=== PATIENT | female | born 1965 | race African-American/Black ===

== ENCOUNTER → 2024-04-22 13:20 | Outpatient (BNVA) | payer OTHER, SELFPAY | PROVIDERS: Visit Provider Registered Nurse | DX: S46.811A Strain of other muscles, fascia and tendons at shoulder and upper arm level, right arm, initial encounter (principal); X50.1XXA Overexertion from prolonged static or awkward postures, initial encounter | CPT/HCPCS: 99202 ==

== ENCOUNTER → 2024-04-26 14:06 | Outpatient (BNVA) | payer OTHER, SELFPAY | PROVIDERS: Visit Provider Registered Nurse | DX: S46.811A Strain of other muscles, fascia and tendons at shoulder and upper arm level, right arm, initial encounter (principal); X50.1XXA Overexertion from prolonged static or awkward postures, initial encounter | CPT/HCPCS: 99213 ==

== ENCOUNTER → 2024-05-03 14:12 | Outpatient (BNVA) | payer OTHER, SELFPAY | PROVIDERS: Visit Provider Registered Nurse | DX: S46.811A Strain of other muscles, fascia and tendons at shoulder and upper arm level, right arm, initial encounter (principal); X50.1XXA Overexertion from prolonged static or awkward postures, initial encounter | CPT/HCPCS: 99213 ==

== ENCOUNTER → 2024-05-17 14:18 | Outpatient (BNVA) | payer OTHER, SELFPAY | PROVIDERS: Visit Provider Registered Nurse | DX: S46.811D Strain of other muscles, fascia and tendons at shoulder and upper arm level, right arm, subsequent encounter (principal); X50.1XXD Overexertion from prolonged static or awkward postures, subsequent encounter | CPT/HCPCS: 99213 ==

== ENCOUNTER → 2024-05-31 14:13 | Outpatient (BNVA) | payer OTHER, SELFPAY | PROVIDERS: Visit Provider Registered Nurse | DX: S46.811D Strain of other muscles, fascia and tendons at shoulder and upper arm level, right arm, subsequent encounter (principal); X50.1XXD Overexertion from prolonged static or awkward postures, subsequent encounter | CPT/HCPCS: 99213 ==

== ENCOUNTER → 2024-06-24 14:10 | Outpatient (BNVA) | payer OTHER, SELFPAY | PROVIDERS: Visit Provider Registered Nurse | DX: S46.811D Strain of other muscles, fascia and tendons at shoulder and upper arm level, right arm, subsequent encounter (principal); X50.1XXD Overexertion from prolonged static or awkward postures, subsequent encounter | CPT/HCPCS: 99213 ==

== ENCOUNTER → 2024-07-08 13:52 | Outpatient (BNVA) | payer OTHER, SELFPAY | PROVIDERS: Visit Provider Registered Nurse | DX: S46.811D Strain of other muscles, fascia and tendons at shoulder and upper arm level, right arm, subsequent encounter (principal); X50.1XXD Overexertion from prolonged static or awkward postures, subsequent encounter | CPT/HCPCS: 99213 ==

== ENCOUNTER 2024-07-19 10:01 | Outpatient (REF) | payer OTHER, SELFPAY ==
--- NOTE | ~2024-07-19 | XR_ITS ---
EXAMINATION: XR CERVICAL SPINE SERIES XR DORSAL SPINE SERIES CLINICAL INFORMATION: Cervicalgia. Pain in dorsal spine. COMPARISON: None available. TECHNIQUE: 3 views of the dorsal spine. 5 views of the cervical spine including flexion and extension. FINDINGS: Dorsal spine: Vertebral bodies normally aligned with normal height. Disc spaces are normal. Surrounding bones and soft tissues are unremarkable. Cervical spine: Vertebral bodies normally aligned with normal height. There is obbf-xx-yxschdrh multilevel degenerative disc changes extending from C3-C4 through C6-C7 manifested by varying degrees of disc space narrowing and endplate osteophytes. Facets unremarkable. No abnormal translation with flexion and extension. Surrounding bones and soft tissues unremarkable. XR/XR thoracic spine 3V IMPRESSION: 1. Dorsal spine: Normal. 2. Hsmp-kt-symdlcgo multilevel spondylosis of the cervical spine. Electronically signed by: Talon Wilkins MD 08/03/2024 07:23 AM EDT
--- NOTE | ~2024-07-19 | XR_ITS ---
EXAMINATION: XR CERVICAL SPINE SERIES XR DORSAL SPINE SERIES CLINICAL INFORMATION: Cervicalgia. Pain in dorsal spine. COMPARISON: None available. TECHNIQUE: 3 views of the dorsal spine. 5 views of the cervical spine including flexion and extension. FINDINGS: Dorsal spine: Vertebral bodies normally aligned with normal height. Disc spaces are normal. Surrounding bones and soft tissues are unremarkable. Cervical spine: Vertebral bodies normally aligned with normal height. There is swqj-ya-eozzangz multilevel degenerative disc changes extending from C3-C4 through C6-C7 manifested by varying degrees of disc space narrowing and endplate osteophytes. Facets unremarkable. No abnormal translation with flexion and extension. Surrounding bones and soft tissues unremarkable. XR/XR cervical spine w flex/ext IMPRESSION: 1. Dorsal spine: Normal. 2. Sngl-fh-xczrcvzz multilevel spondylosis of the cervical spine. Electronically signed by: Talon Wilkins MD 08/03/2024 07:23 AM EDT
== END 2024-07-19 10:02 | disposition home or self-care (01) ==
LOC: HO.XRAY 10:01
PROVIDERS: Visit Provider Registered Nurse Emergency
DX: M54.6 Pain in thoracic spine (principal); M54.2 Cervicalgia
CPT/HCPCS: 72052; 72072; 99202

== ENCOUNTER 2024-07-19 10:01 | Outpatient (AMB) | payer OTHER, SELFPAY ==
--- NOTE | 2024-07-19 10:10 | MHC.OFFVIS ---
Vital Signs 07/19/24 10:11 Weight 169 lb BP 139/80 Blood Pressure Location Lt brachial Position Sitting Pulse 87 Pulse Source Pulse Oximeter Pulse Oximetry (%) 99 Oxygen Delivery Method Room Air Intake Visit Reasons: Right Shoulder/Arm Trapezius Allergies Sulfa (Sulfonamide Antibiotics) Allergy (Intermediate, Verified 07/19/24 10:12) Hives Medication List - Last Reconciled 07/19/24 by Emmie Prabhakar biotin 2,500 mcg PO DAILY calcium carbonate 500 mg PO DAILY cholecalciferol (vitamin D3) 25 mcg PO DAILY cyclobenzaprine 10 mg PO BEDTIME PRN glucosamine-chondroitin 250-200 mg (Osteo Bi-Flex) 2 tabs PO ONCE mecobalamin (vitamin B12) mcg PO topiramate (Topamax) 25 mg PO BID HPI Comments Details: Shannan is a very pleasant 59-year-old female who presents the office today for evaluation management of her chronic right upper back pain Pain started 04/21/2024 after work injury. 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 She developed pain over the next day to the right upper back radiating down the right arm. Endorses initially some burning, numbness, tingling down the right arm this has improved since the injury Now complains mostly of pain, tenderness to palpation over right thoracic paraspinal muscles Patient just completed physical therapy 2 weeks ago without improvement of her symptoms She has tried massage and cupping without improvement She has been taking ibuprofen and muscle relaxers but pain persists Using lidocaine patches with minimal improvement. Pain today is rated as a 4/10, constant and worse at the end of the day In terms of muscle damage condition is described as stabbing, burning, tingling, exhausting, aching. Pain is negatively impacting patient's sleeping, working, enjoyment of life, general activity, ability to care for herself. Denies current use of anticoagulants Denies implantable devices, pacemaker or defibrillator Denies current use of nicotine, tobacco, alcohol or illicit substances. Review of Systems Const All systems reviewed & are unremarkable except as noted in HPI and below Physical Exam Vital Signs: Last Vital Signs Pulse 87 07/19/24 10:11 BP 139/80 07/19/24 10:11 Pulse Ox 99 07/19/24 10:11 Oxygen Delivery Method Room Air 07/19/24 10:11 General: awake, alert, oriented. Answers questions appropriately. Fully engaged in examination. Skin: warm, dry, intact HEENT: Normocephalic. Hearing intact. Cardiac: External chest normal in appearance. Respiratory: No cough, audible wheezing or stridor. Abdomen: without gross distension. MS: No obvious swelling or deformities. Able to stand on bilateral tiptoes and bilateral heels.? Able to transition from sit to stand unassisted. Ambulates with bilaterally normal heel strike and toe off Tenderness to palpation over midline thoracic vertebrae in right thoracic paraspinal muscles Right upper extremity full range motion Bilateral upper extremity strength 5/5 Full cervical range of motion Valsalva negative Neurological: Oriented to person, place, time and situation. Thought process intact. No gait abnormalities appreciated. Psychiatric: Appropriate mood and affect. Good judgment and insight. Assessment & Plan Assessment & Plan (1) Thoracic back pain: Code(s): M54.6 - Pain in thoracic spine Category: Medical Plan Shannan is a very pleasant 59-year-old female who presented to the office today for evaluation management of her chronic thoracic back pain X-rays ordered for evaluation MRI ordered, patient is suffering with thoracic radiculopathy, failed greater than 6 weeks of conservative therapy. Gabapentin 100 mg p.o. t.i.d., patient advised on cautions for use. TENs unit ordered, patient provided with brochures and instructions on use Continue cyclobenzaprine as prescribed. Patient declines refill today Discuss options for treatment, pending review of MRI will plan for MBB versus epidural steroid injection. All questions and concerns were answered, patient agrees with the plan. Follow up after MRI, sooner if needed Orders: Orders XR cervical spine w flex/ext Today M54.2 - Cervicalgia XR thoracic spine 3V Today M54.6 - Pain in thoracic spine MR thoracic spine wo con Today M54.6 - Pain in thoracic spine Medications: New gabapentin 100 mg PO TID 90 caps 0RF Coding Level of Care Code New Pt Level 4 (49518) Complex EM visit Add On G2211 Diagnoses Thoracic back pain M54.6
[2024-07-19 10:11] VITALS: BP 139/80; PULSE 87; O2SAT 99
== END 2024-07-19 10:50 | disposition home or self-care (01) ==
PROVIDERS: Visit Provider Registered Nurse Emergency
DX: M54.6 Pain in thoracic spine (principal)
CPT/HCPCS: 99204; G2211

== ENCOUNTER → 2024-08-02 14:45 | Outpatient (BNVA) | payer OTHER, SELFPAY | PROVIDERS: Visit Provider Registered Nurse | DX: S46.811D Strain of other muscles, fascia and tendons at shoulder and upper arm level, right arm, subsequent encounter (principal); X50.1XXD Overexertion from prolonged static or awkward postures, subsequent encounter | CPT/HCPCS: 99213 ==

== ENCOUNTER → 2024-09-02 13:53 | Outpatient (BNVA) | payer OTHER, SELFPAY | PROVIDERS: Visit Provider Registered Nurse | DX: S46.811D Strain of other muscles, fascia and tendons at shoulder and upper arm level, right arm, subsequent encounter (principal); X50.1XXD Overexertion from prolonged static or awkward postures, subsequent encounter | CPT/HCPCS: 99213 ==

== ENCOUNTER 2024-09-19 11:11 | Outpatient (AMB) | payer OTHER, SELFPAY ==
--- NOTE | 2024-09-19 12:02 | MHC.OFFVIS ---
Vital Signs 09/19/24 12:03 Height 5 ft 11 in Weight 169 lb BMI 23.6 BP 102/78 Blood Pressure Location Lt brachial Position Sitting Respiration 14 Pulse 108 H Pulse Source Pulse Oximeter Pulse Oximetry (%) 98 Oxygen Delivery Method Room Air Intake Visit Reasons: Right shoulder pain-workman's comp Allergies Sulfa (Sulfonamide Antibiotics) Allergy (Intermediate, Verified 09/19/24 12:04) Hives Medication List - Last Reconciled 09/19/24 by Meghann Cardenas LPN biotin 2,500 mcg PO DAILY calcium carbonate 500 mg PO DAILY cholecalciferol (vitamin D3) 25 mcg PO DAILY cyclobenzaprine 10 mg PO BEDTIME PRN glucosamine-chondroitin 250-200 mg (Osteo Bi-Flex) 2 tabs PO ONCE lidocaine 5% 1 patch topical DAILY mecobalamin (vitamin B12) mcg PO topiramate (Topamax) 25 mg PO BID HPI HPI Right shoulder pain-workman's comp: Details: 59-year-old female who presents today to the office for a right upper back pain. She reports chronic right upper back pain. The pain started on 04/21/2024 after work injury. 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 She attempted to prevent him falling to the floor by pulling back with her arm. She developed pain over the next day to the right upper back radiating down the right arm. She initially endorses some burning, numbness, tingling down the right arm this has improved since the injury after physical therapy. She completed physical therapy in July 2024 without improvement of her upper back symptoms. She has tried massage and cupping without improvement. She has been taking ibuprofen and muscle relaxers with no relief. She has been using lidocaine patches with mild improvement. She has difficulty sleeping, working, enjoyment of life, general activity, ability to care for herself. She currently notes the pain is in her upper back. She had experienced some tingling lately, which was resolved by TENS units. She has continued with lidocaine patches. She is a side sleeper. Recently, her thoracic spine MRI was denied by the insurance. Review of Systems Const All systems reviewed & are unremarkable except as noted in HPI and below Physical Exam Vital Signs: Last Vital Signs Pulse 108 H 09/19/24 12:03 Resp 14 09/19/24 12:03 BP 102/78 11/11/24 12:03 Pulse Ox 98 09/19/24 12:03 Oxygen Delivery Method Room Air 09/19/24 12:03 BMI result Body Mass Index 23.6 General: Appears afebrile. Alert and oriented. Mood and affect appropriate. Follows and participates in conversation appropriately. Respiratory effort is unlabored. Able to transition from sit to stand unassisted. Ambulates with bilaterally normal heel strike and toe off. Tenderness to palpation in the right parascapular region and the right paraspinal thoracic region. Results Reviewed Results Reviewed: 07/19/24: XR CERVICAL SPINE SERIES/XR DORSAL SPINE SERIES FINDINGS: Dorsal spine: Vertebral bodies normally aligned with normal height. Disc spaces are normal. Surrounding bones and soft tissues are unremarkable. Cervical spine: Vertebral bodies normally aligned with normal height. There is qnpt-ox-smqnkxch multilevel degenerative disc changes extending from C3-C4 through C6-C7 manifested by varying degrees of disc space narrowing and endplate osteophytes. Facets unremarkable. No abnormal translation with flexion and extension. Surrounding bones and soft tissues unremarkable. IMPRESSION: 1. Dorsal spine: Normal. 2. Jiwu-kd-pmozlbfg multilevel spondylosis of the cervical spine. Assessment & Plan Assessment & Plan (1) Cervical spondylosis: Code(s): M47.812 - Spondylosis without myelopathy or radiculopathy, cervical region Category: Medical (2) Cervical radiculopathy: Code(s): M54.12 - Radiculopathy, cervical region Category: Medical Plan I recommended a course of physical therapy for her cervical intervertebral disc degeneration and spondylosis that may be a source of her referred for back pain. A referral was provided for neck physical therapy. The patient will receive a call to schedule an appointment. I also recommended a trial of acupuncture or dry needling along with physical therapy. If she does not respond to physical therapy, we will consider an MRI of the neck for consideration of an epidural steroid injection. She will follow-up in [address] Enrique by Eugenie Peter, medical device sales consultant, on 09/19/2024.? I, Dr. Enrique, have personally reviewed and agree with the information entered by the scribe. Orders: Orders PT Evaluation and Treatment 09/19/24 M54.12 - Radiculopathy, cervical region, M47.812 - Spondylosis without myelopathy or radiculopathy, cervical region Coding Level of Care Code Est Pt Level 4 (32878) Diagnoses Cervical spondylosis M47.812 Cervical radiculopathy M54.12
[2024-09-19 12:03] VITALS: BP 102/78; PULSE 108; RESP 14; O2SAT 98; BMI 23.6
== END 2024-09-19 12:43 | disposition home or self-care (01) ==
PROVIDERS: Visit Provider Internal Medicine
DX: M47.812 Spondylosis without myelopathy or radiculopathy, cervical region (principal); M54.12 Radiculopathy, cervical region
CPT/HCPCS: 99214

== ENCOUNTER → 2024-09-19 11:11 | Outpatient (BNVA) | payer OTHER, SELFPAY | PROVIDERS: Visit Provider Internal Medicine | DX: M47.22 Other spondylosis with radiculopathy, cervical region (principal) | CPT/HCPCS: 99212 ==

== ENCOUNTER → 2024-10-14 13:45 | Outpatient (BNVA) | payer OTHER, SELFPAY | PROVIDERS: Visit Provider Registered Nurse | DX: S46.911D Strain of unspecified muscle, fascia and tendon at shoulder and upper arm level, right arm, subsequent encounter (principal); X50.1XXD Overexertion from prolonged static or awkward postures, subsequent encounter; M54.2 Cervicalgia; M47.812 Spondylosis without myelopathy or radiculopathy, cervical region | CPT/HCPCS: 99213 ==

== ENCOUNTER → 2024-11-22 15:19 | Outpatient (BNVA) | payer OTHER, SELFPAY | PROVIDERS: Visit Provider Registered Nurse | DX: S46.811D Strain of other muscles, fascia and tendons at shoulder and upper arm level, right arm, subsequent encounter (principal); X50.1XXD Overexertion from prolonged static or awkward postures, subsequent encounter; M54.2 Cervicalgia | CPT/HCPCS: 99213 ==

== ENCOUNTER 2024-12-21 09:57 | Outpatient (AMB) | payer OTHER, SELFPAY ==
[2024-12-21 10:01] VITALS: BP 124/84; PULSE 87; RESP 16; BMI 24.3
--- NOTE | 2024-12-21 10:01 | A.OFFVIS_ITS ---
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 Allergies Sulfa (Sulfonamide Antibiotics) Allergy (Intermediate, Verified 12/21/24 10:02) Hives Medication List - Last Reconciled 12/21/24 by Meghann Cardenas LPN biotin 2,500 mcg PO DAILY calcium carbonate 500 mg PO DAILY cholecalciferol (vitamin D3) 25 mcg PO DAILY cyclobenzaprine 10 mg PO BEDTIME PRN glucosamine-chondroitin 250-200 mg (Osteo Bi-Flex) 2 tabs PO ONCE lidocaine 5% 1 patch topical DAILY mecobalamin (vitamin B12) mcg PO topiramate (Topamax) 25 mg PO BID HPI HPI follow up: Details: History of Present Illness The patient is a 59-year-old female presenting with follow-up for chronic neck and thoracic back pain. She reports chronic cervical radiculopathy with pain radiating into the shoulder, characterized by burning sensations that have slightly improved with physical therapy and exercise regimens. Despite trying dry needling, results were unsatisfactory. The patient is managing ongoing discomfort with a combination of lidocaine patches and TENS therapy as needed. Additionally, she experiences persistent thoracic back pain centered around the shoulder blade, classified as thoracic facet syndrome due to underlying thoracic spondylosis. While physical therapy has been ineffective in resolving these issues over three months, home remedies like massage and tennis ball rolling have been attempted. The recent incorporation of an ergonomic groove pillow has alleviated neck stiffness. To manage work-related aggravations, the patient remains on light duty and may seek a functional capacity evaluation for work accommodations. Pain Description - Onset and Timing: Chronic cervical pain with radiation towards the shoulder; thoracic pain persistent for several months. - Quality and Character: Burning sensation in the neck; local tenderness and intermittent pain around the shoulder blade. - Primary Location: Neck with radiation to the shoulder; thoracic region near the shoulder blade. - Exacerbating Factors: Certain work activities, inadequate ergonomic support. - Relieving Factors: Physical therapy, groove pillow use, lidocaine patch, TENS machine. - Functional Impact: Limitations in work duties; activities requiring shoulder or neck mobility are affected. Physical Exam - TTP along medial scapular edge on the right Results Pain Management - Affect: Pain impacting work duties and daily activities. - Analgesia: Lidocaine patches and TENS machine with intermittent use and need for ongoing management techniques. - Adverse Effects: None reported from pain therapies. - Activities of Daily Living: Use of light duty at work; use of ergonomic aids for comfort. - Aberrant Drug Related Behaviors: None reported. Physical Exam Vital Signs: Last Vital Signs Pulse 87 12/21/24 10:01 Resp 16 12/21/24 10:01 BP 124/84 12/21/24 10:01 BMI result Body Mass Index 24.3 Assessment & Plan Assessment & Plan (1) Thoracic back pain: Code(s): M54.6 - Pain in thoracic spine Category: Medical (2) Cervical radiculopathy: Code(s): M54.12 - Radiculopathy, cervical region Category: Medical (3) Cervical spondylosis: Code(s): M47.812 - Spondylosis without myelopathy or radiculopathy, cervical region Category: Medical Plan Plan To manage the patient's chronic neck and thoracic back pain, an ultrasound- guided erector spinae block is recommended to alleviate the persistent thoracic pain that has been unresponsive to physical therapy. Recommend continuing PT program, which has otherwise been helpful. Deep tissue massage will continue alongside home exercises like tennis ball rolling. Consideration of a functional capacity evaluation to assess work-related capabilities is advised. She is advised to avoid activities that exacerbate her condition and to maintain ergonomic support during rest. Patient was informed and verbally consented to the use of an ambient scribe for clinic note documentation during this visit. Discussion Notes I discussed the chronic nature of the patient's neck and thoracic back pain, attributing it to cervical radiculopathy and thoracic facet syndrome secondary to spondylosis. We explored various management options including physical therapy, medication patches, and ergonomic aids. A therapeutic ultrasound-guided erector spinae block was recommended, and I explained the procedure's potential benefits and risks, obtaining verbal consent. I advised continuing physical therapy efforts at home, including massage and roll exercises, and maintaining light duty at work. A potential functional capacity evaluation was suggested to understand and possibly adjust work limitations. Coordination with workers? compensation for procedural authorization was acknowledged. Patient Instructions - Continue using the ergonomic groove pillow nightly to reduce neck stiffness. - Engage in home exercises such as tennis ball rolling for pain management. - Continue using the lidocaine patch and TENS machine as needed for pain relief. - Maintain light duty at work and avoid activities that exacerbate pain. - Await guidance on the ultrasound-guided block procedure for upper back pain. - Follow up with a functional capacity evaluation if required for work duties. Orders: Orders PT Evaluation and Treatment Today M47.812 - Spondylosis without myelopathy or radiculopathy, cervical region, M54.12 - Radiculopathy, cervical region, M54.6 - Pain in thoracic spine Coding Level of Care Code Est Pt Level 4 (97585) Diagnoses Thoracic back pain M54.6 Cervical radiculopathy M54.12 Cervical spondylosis M47.812
--- OUTSIDE RECORDS SUMMARY | 2024-12-21 11:41 | XMS_ITS | Continuity of Care Document ---
Author Organization [facility] [address] [place] [address] Phone [phone] Care Team Providers Care Publications Production Supervisor Name Role Phone Ruthy Rowley M.D. Care Team Informati on Manager Poker [phone] Problems Active Problems Provider Date Gastritis Ruthy Rowley M.D. Ons et: 09/26/2022 Tinnitus Ruthy Rowley M.D. Ons et: 09/26/2022 Genital warts Ruthy Rowley M.D. Ons et: 09/26/2022 Dyslipidemia Ruthy Rowley M.D. Ons et: 09/26/2022 Dry eyes Ruthy Rowley M.D. Ons et: 09/26/2022 Migraine Ruthy Rowley M.D. Ons et: 02/01/2024 Irritable bowel syndrome mark racterized by constipation Ruthy Rowley M.D. Onset: 02/01/2024 Uterine leiomyoma Ruthy Rowley M.D. O nset: 02/01/2024 Mantoux: positive Ruthy Rowley M.D. O nset: 02/01/2024 Social History Type Date Description Comments Sex Unknown Lives With Alone Occupation home health care Work Status Full-Time Employment ETOH Use Denies alcohol use Tobacco Use Start: Unknown End: Unknown Patient is a former smoker Quit at least 30 years Allergies and adverse reactions Active Allergies Criticality Reaction Severity Comments Date Sulfamethoxazole Unable to assess criticality 09/26/2022 Medications Active Medications SIG Qnty Indications Ordering Provider Date [id number] Tablets Take 1 Tab By Mouth as Needed For Headache.May Take Extra Tab 2 HRS Later If Needed.Max 2 Tabs/24HRS 6tabs Ruthy Rowley M.D. 10/16/2022 [id number] Tablets take 2 tablets by mouth twice a day 360tabs Ruthy Rowley M.D. 07/07/2022 Valacyclovir UAR196mi Tablets Take 1 Tablet By Mouth Every Day Joey Lackey MD Vitamin A113mig (400 Unit) Capsules 1 by mouth every day Ruthy Rowley M.D. Calcium 600 + [id number] Tablets 1 by mouth every day Ruthy Rowley M.D. [id number] Chewtabs 1 by mouth every day Ruthy Rowley M.D. Osteo Bi-Flex Advanced Triple StrengthTablets 1 by mouth twice a day Ruthy Rowley M.D. Vitamin C Immune [id number] Chewtabs 1 by mouth every day Ruthy Rowley M.D. Vital Signs Date Vital Result Comment 02/01/2024 1:59pm BP Systolic 90 mmHg BP Diastolic 64 mmHg Heart Rate 73 /min Height 71 inches 5'11 Weight 166.50 lb BMI (Body Mass Index) 23.2 kg/m2 Results Test Acquired Date Facility Test Result H/L Range N ote Comp. Metabolic Panel (14) 02/01/2024 [facility] Glucose 95 mg/dL 70-99 BUN 15 mg/dL 6-24 Creatinine 0.83 mg/dL 0.57-1.00 eGFR 81 mL/min/1.73 >59 BUN/Creatinine Ratio 18 9-23 Sodium 144 mmol/L 134-144 Potassium 4.1 mmol/L 3.5-5.2 Chloride 109 mmol/L High 96-106 Carbon Dioxide, Total 21 mmol/L 20-29 Calcium 10.3 mg/dL High 8.7-10.2 Protein, Total 6.6 g/dL 6.0-8.5 Albumin 4.6 g/dL 3.8-4.9 Globulin, Total 2.0 g/dL 1.5-4.5 A/G Ratio 2.3 High 1.2-2.2 Bilirubin, Total 0.4 mg/dL 0.0-1 .2 Alkaline Phosphatase 77 IU/L 44-121 Ast (Sgot) 19 IU/L 0-40 Alt (SGPT) 14 IU/L 0-32 Lipid Panel 02/01/2024 [facility] Cholesterol, Total 200 mg/dL High 100-199 Triglycerides 61 mg/dL 0-149 HDL Cholesterol 59 mg/dL >39 VLDL Cholestero l Deejay 11 mg/dL 5-40 LDL Chol Calc (Nih) 130 mg/dL High 0-99 Comment: TNP Hemoglobin A1c 02/01/2024 [facility] Hemoglobin A1c 5.8 % High 4.8-5.6 1 CBC With Differential/Pl atelet 02/01/2024 [facility] WBC 7.2 x10E3/uL 3.4-10.8 RBC 4.76 x10E6/uL 3.77-5.28 Hemoglobin 14.1 g/dL 11.1-15.9 Hematocrit 41.9 % 34.0-46.6 MCV 88 fL 79-97 MCH 29.6 pg 26.6-33.0 MCHC 33.7 g/dL 31.5-35.7 RDW 12.9 % 11.7-15.4 Platelets 194 x10E3/uL 150-450 Neutrophils 69 % Not Estab. Lymphs 24 % Not Estab. Monocytes 6 % Not Estab. Eos 1 % Not Estab. Basos 0 % Not Estab. Immature Cells TNP Neutrophils (Absolute) 5.0 x10E3/uL 1.4-7.0 Lymphs (Absolute) 1.7 x10E3/uL 0.7-3.1 Monocytes(Absol thais ) 0.4 x10E3/uL 0.1-0.9 Eos (Absolute) 0.1 x10E3/uL 0.0-0.4 Baso (Absolute) 0.0 x10E3/uL 0.0-0.2 Immature Granulocytes 0 % Not Estab. Immature Grans (Abs) 0.0 x10E3/uL 0.0-0.1 NRBC TNP Hematology Comments: TNP 1 Prediabetes: 5.7 - 6 .4 Diabetes: >6.4 Glycemic control for adults with diabetes: <7.0 Procedures Date Code Description Status 02/01/2024 14524 Collection Of Venous Blood B y Venipuncture Completed 09/26/2022 NSHOWOFF No Show Office Visit Complet ed Medical Devices Description No Information Available Encounters Type Date Location Provider Dx Diagnosis Office Visit 02/01/2024 1:30p Main Office Ruthy Rowley M.D. Z00.00 Encntr for general adult medical exam w/o abnormal findings G43.009 Migraine w/o aura, n ot intractable, w/o status migrainosus R73.03 Prediabetes H93.11 Tinnitus, right ear H91.91 Unspecified hearing loss, right ear Assessments Date Code Description Provider 02/01/2024 Z00.00 [facility] Ruthy Rowley M.D. 02/01/2024 G43.009 Migraine without aura, not intractable, without status migrainosus Ruthy Rowley M.D. 02/01/2024 R73.03 Prediabetes Ruthy Goff M.D. 02/01/2024 H93.11 Tinnitus, right ear Ruthy Rowley M.D. 02/01/2024 H91.91 Unspecified hearing loss, ri ght ear Ruthy Rowley M.D. Plan of Treatment Future Appointment(s):* 02/03/2025 10:30 am - Ruthy Rowley M.D. at Main Office 02/01/2024 - Ruthy Rowley M.D.* Z00.00 Encounter for general adult medical examination without abnormal findings * G43.009 Migraine without aura, not intractable, without status migrainosus * R73.03 Prediabetes * H93.11 Tinnitus, right ear * H91.91 Unspecified hearing loss, right ear Functional Status Description No Information Available Mental Status Description No Information Available Referrals Refer to Reason for Referral Status Appt [facility] Hearing loss Patient Declin ed 08/26/2024 Sara Alvarez [address] [place] [address] [phone]
== END 2024-12-21 10:22 | disposition home or self-care (01) ==
PROVIDERS: Visit Provider Internal Medicine
DX: M54.6 Pain in thoracic spine (principal); M54.12 Radiculopathy, cervical region; M47.812 Spondylosis without myelopathy or radiculopathy, cervical region
CPT/HCPCS: 99214

== ENCOUNTER → 2024-12-21 09:57 | Outpatient (BNVA) | payer OTHER, SELFPAY | PROVIDERS: Visit Provider Internal Medicine | DX: M54.6 Pain in thoracic spine (principal); M47.22 Other spondylosis with radiculopathy, cervical region | CPT/HCPCS: 99212 ==

== ENCOUNTER → 2024-12-27 14:02 | Outpatient (BNVA) | payer OTHER, SELFPAY | PROVIDERS: Visit Provider Registered Nurse | DX: M25.511 Pain in right shoulder (principal); M54.2 Cervicalgia | CPT/HCPCS: 99213 ==

== ENCOUNTER → 2025-02-07 14:01 | Outpatient (BNVA) | payer OTHER, SELFPAY | PROVIDERS: Visit Provider Registered Nurse | DX: S46.811D Strain of other muscles, fascia and tendons at shoulder and upper arm level, right arm, subsequent encounter (principal); X50.1XXD Overexertion from prolonged static or awkward postures, subsequent encounter; M54.2 Cervicalgia; M54.6 Pain in thoracic spine | CPT/HCPCS: 99213 ==

== ENCOUNTER 2025-02-17 10:09 | Outpatient (AMB) | payer OTHER, SELFPAY ==
--- NOTE | 2025-02-17 10:11 | A.OFFVIS_ITS ---
Vital Signs 02/17/25 10:12 Height 5 ft 11 in Weight 174 lb BMI 24.3 BP 137/71 Blood Pressure Location Lt brachial Position Sitting Respiration 16 Pulse 96 Pulse Source Pulse Oximeter Pulse Oximetry (%) 100 Oxygen Delivery Method Room Air Intake Visit Reasons: Trigger point inj Gum Dipper Required: No Universal Winding Machine Operator: Universal Winding Machine Operator Present Accompanied by: Akash Dillon Allergies Sulfa (Sulfonamide Antibiotics) Allergy (Intermediate, Verified 02/17/25 10:14) Hives Medication List - Last Reconciled 02/17/25 by Meghann Cardenas LPN biotin 2,500 mcg PO DAILY calcium carbonate 500 mg PO DAILY cholecalciferol (vitamin D3) 25 mcg PO DAILY cyclobenzaprine 10 mg PO BEDTIME PRN glucosamine-chondroitin 250-200 mg (Osteo Bi-Flex) 2 tabs PO ONCE lidocaine 5% 1 patch topical DAILY mecobalamin (vitamin B12) mcg PO topiramate (Topamax) 25 mg PO BID HPI HPI Trigger point inj: Details: History of Present Illness The patient is a 59-year-old female presenting with chronic neck pain and shoulder pain. Her neck pain has worsened since she stopped physical therapy. The pain is sharp, stabbing, and intermittent, waking her at night. She has been managing some symptoms at home using a TENS machine but cannot replicate the benefits of deep tissue massages provided in physical therapy. 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 The current pain pattern extends from the thoracic region to the shoulder, indicating a more comprehensive involvement than initially recognized. Workers' compensation initially covered the shoulder discomfort but now denies further claims due to a narrow definition of the affected area. Her concerns led her to inquire about trigger point injections for temporary pain relief. Pain Description - Onset and Timing: Persistent since the work-related incident. - Quality and Character: Sharp and stabbing in nature. - Primary Location: Neck, with radiation to shoulder areas. - Areas of radiation: Radiating from the neck through to the shoulder. - Exacerbating Factors: Stopped physical therapy, certain activities, wrong sleeping position. - Relieving Factors: TENS machine use, deep tissue massages during past physical therapy sessions. - Interference with Activities: Disrupts sleep, generalized discomfort during da tiffanie activities. Physical Exam - Musculoskeletal- Tenderness and muscular tightness in the cervical and shoulder regions. . Pain Management - Affect: Pain disrupts sleep and daily activities significantly. - Analgesia: Current use of TENS machine, interest in trigger point injections. - Adverse Effects: No reported adverse effects from current management. - Activities of Daily Living: Pain impacts sleep and some daily functions, seeking relief to improve quality of life. - Aberrant Drug Related Behaviors: None reported or noted. Procedure - Patient and informed consent: Consent obtained for procedure. - Procedure: Paraspinal thoracic rhomboid and trapezius trigger point injections were performed using a 25-gauge needle to inject 0.25% ropivacaine in the marked areas. 1-2 mL was injected at each trigger point; total 10 mL. The patient tolerated the procedure well, and there was no blood loss noted. Physical Exam Vital Signs: Last Vital Signs Pulse 96 02/17/25 10:12 Resp 16 02/17/25 10:12 BP 137/71 02/17/25 10:12 Pulse Ox 100 02/17/25 10:12 Oxygen Delivery Method Room Air 02/17/25 10:12 BMI result Body Mass Index 24.3 Assessment & Plan Assessment & Plan (1) Strain of right shoulder: Code(s): S46.911A - Strain of unspecified muscle, fascia and tendon at shoulder and upper arm level, right arm, initial encounter Category: Medical (2) Cervical spondylosis: Code(s): M47.812 - Spondylosis without myelopathy or radiculopathy, cervical region Category: Medical (3) Cervical radiculopathy: Code(s): M54.12 - Radiculopathy, cervical region Category: Medical (4) Thoracic back pain: Code(s): M54.6 - Pain in thoracic spine Category: Medical Plan Plan The patient will continue with home exercise, stretching, and strengthening exercises for management of chronic neck pain alongside the recent administration of trigger point injections for temporary symptomatic relief. Examination of additional massage therapy options is advised. The tracking of insurance coverage for further therapy, potentially needing to shift to alternative providers, is recommended. Continual evaluation and potential follow-up trigger point injections may be required, based on the relief achieved in the interim. The patient will monitor her pain levels and report back on any changes or complications. Patient was informed and verbally consented to the use of an ambient scribe for clinic note documentation during this visit. Discussion Notes During our discussion, I informed the patient about the chronic nature of her neck pain, which may require ongoing management through a combination of exercises, physical therapy, and periodic injections. The benefits of trigger point injections for temporary relief were explained, as well as the understanding that these are not definitive solutions to the underlying issue. We reviewed the workers' compensation situation and the limitations imposed, noting the potential necessity to explore insurance options to ensure ample continued treatment. We also discussed follow-up considerations and the importance of ongoing physical and self-managed therapy. Patient Instructions - Continue using TENS machine and home exercises including stretching and strengthening your neck. - Monitor how the trigger point injection impacts your pain levels over the next few weeks. - Explore other facilities offering deep tissue massages if this has been beneficial. - Contact your insurance provider to inquire about additional physical therapy sessions or massage coverage. - Return for further evaluation if pain worsens or for potential repeat injections. - Report any unusual symptoms or lack of relief from the current treatment plan. Coding Level of Care Code Est Pt Level 4 (45459) Diagnoses Strain of right shoulder S46.911A Cervical spondylosis M47.812 Cervical radiculopathy M54.12 Thoracic back pain M54.6
[2025-02-17 10:12] VITALS: BP 137/71; PULSE 96; RESP 16; O2SAT 100; BMI 24.3
--- OUTSIDE RECORDS SUMMARY | 2025-02-17 10:54 | XMS_ITS | Data Portability ---
Author Organization [place] - [facility], Allergy Address [address] [place] [id number] Care Team Providers Care Java Security Architect Name Role Phone HUTSONTASHA CARCAMO Primary Care Provider Assessment Encounter Date Assessment Date Assessment LastModified by Organization Details LastModified Time 08/26/2024 08/26/2024 Patient presents with non-pulsatile tinnitus. Physical exam unrevealing. Audiometric testing demonstrates mild high frequency loss on the right and normal hearing on the left. Amplification not indicated. We reviewed that unfortunately there is no known medical nor surgical cure. I have recommended the use of hearing protection as needed. They should also use masking techniques with background noises that modulate to decrease perception of non-pulsatile tinnitus. Other therapies to improve tolerance of tinnitus were reviewed, to include biofeedback, sound retraining, and cognitive behavioral therapy. We discussed that high stress, low sleep and high caffeine intake can also be contributing factors. A brochure was provided to patient to read at home. [email or web address] Not available 08/26/2024 11:21:21 Plan of Treatment Reminders Order Date Submit Date Provider Last Modified By Organization Details Last Modified Time Details Appointments None record ed. Lab None record ed. Referral None record ed. Procedures None record ed. Surgeries None record ed. Imaging None record ed. Medication Orders None record ed. Patient TargetsNo targets recorded. Patient InstructionsNo instructions recorded. Reason for Referral None Reported. Results Created Date Observation Date Name Description Value Unit Range Abnormal Flag Note LastModifiedBy Organization Detail LastModifiedTime 08/30/20 24 audio gram No observ ation record ed. BARCODE Not Available 2023 14:03:05 Result Notes None recorded. Problems Name Problem SNOMED Code Status Onset Date Resolution Date Notes Provider Name and Address Organization Details Recorded Time Temporoma ndibular joint disorder 70522513 Active 2013 Temporoma ndibular joint disorder; CMS Risk: low risk CMS Treatment : new problem (to examiner) : no additiona l workup planned [place]: Date Diagnosed : 4 4:39 PM (524.60) Not Available [facility] 4 02:24:20 Sensorine ural hearing loss of bilateral ears 980699562 Active 2013 Sensorine ural HL, bilateral Not Available [facility] 4 00:55:13 Unilatera l sensorine ural hearing loss with unrestric shiloh hearing on the contralat eral side Active 2013 Sensorine ural hearing loss unilatera lly; CMS Risk: low risk CMS Treatment : new problem (to examiner) : no additiona l workup planned [place]: Date Diagnosed : 4 3:27 PM (389.15) Not Available [facility] 4 02:24:03 Sensorine ural hearing loss in right ear 68636696072 100 Active 2023 CLARKE ANTHONY [address], [address] , [facility] 4 10:41:56 Problem Notes None recorded. Procedures Surgical History Date Name Laterality Status Provider Name and Address Organization Details Recorded Time 08/26/2024 Comp Audio with Tymps (45571 & 02600) completed CLARKE ANTHONY [address] [address], [place], [address], [facility] 08/26/2024 10:41:22 Imaging Results Imaging Date Name Status LastModified by Organiz ation Details LastModified Time 08/30/2024 audiogram completed BAR[facility] Information no t available 08/30/2024 14:03:05 Procedure Notes None recorded. Medical Equipment None Reported. Allergies Allergen ID Allergen Name Allergen Category Reaction Reaction Severity Criticality Documentation Date Start Date Code Code System Note Provider Name and Address Organization Details Recorded Time 45569 Substance with sulfonami de structure and antibacte rial mechanism of action (substanc e) medicatio n other Not available Not available 03/22/2024 54811 8003 SNOMED React ion: unkno wn, unspe cifie d;; Not Available [facility] 4 00:52:51 Medications Name Sig Start Date Stop Date Status Note LastModified by Organization Details LastModified Time cyclobenza darlene 10 mg tablet TAKE 1 TABLET BY MOUTH AT BEDTIME NEEDED FOR MUSCLE SPASMS active Not Available Not Available No t Available topiramate 25 mg tablet TAKE 2 TABLETS BY MOUTH TWICE A DAY active Not Available Not Available No t Available valacyclov ir 500 mg tablet TAKE 1 TABLET BY MOUTH EVERY DAY active Not Available Not Available No t Available lidocaine 5 % topical patch APPLY 1 PATCH TOPICALLY DAILY LEAVE ON MOST PAINFUL AREA FOR UP TO 12 HRS active Not Available Not Available No t Available Valtrex 1 gram tablet by mouth 2013 active Medicatio n ID: [id number] Bra nd Name: Valtrex S ubs Allowed: subs OK Medica tionGener icName: Valtrex Not Available Not Available Not Available gabapentin 100 mg capsule TAKE 1 CAPSULE BY MOUTH 3 TIMES A DAY active Not Available Not Available No t Available Vitals Date Recorded Body height Body mass index (BMI) Body weight Provider Name and Address Organization Details Last Updated DateTime 08/26/2024 180.34 cm 23.6 kg/m2 45427.11 g Katelin Keys [place] - [facility] 08/26/2024 09:59:13 Social History None recorded. Functional Status None recorded. Mental Status None recorded. Family History Nothing Reported. Medical History No medical history recorded. Gynecological HistoryNo gynecological history recorded. Obstetrics History GPAL:G 0 P 0 0 0 0 Past Encounters Encounter ID Performer Location Encounter Start Date Encounter Closed Date Diagnosis/Indication Diagnosis SNOMED-CT Code Diagnosis ICD10 Code Diagnosis Note [id number] RENEE SMITH PA-C [facility] [address] [address] 08/26/2024 09:29:53 08/26/2024 11:20:24 Sensorineural hearing loss in right ear [id number] 9100 H90.41 Audiologic al evaluation results: Right ear: {{Normal* Normal through 2 kHz Mild M oderate Mo derately-s evere Vanessa re Profoun d}} {{hearing sloping to a mild* slop ing to a moderate s loping to moderately severe slo ping to severe slo ping to profound f lat high frequency low frequency mid frequency cookie bite daniel curve}} {{with sen sorineural hearing loss with* cond uctive hearing loss with mixed hearing loss with}} {{excellen t* good fa ir poor no measurable }} word recognitio n. Left ear: {{Normal N ormal through 2 kHz Mild M oderate Mo derately-s evere Vanessa re Profoun d [facility] lly normal#}} {{hearing* sloping to a mild slopi ng to a moderate s loping to moderately severe slo ping to severe slo ping to profound f lat high frequency low frequency mid frequency cookie bite daniel curve}} {{with* se nsorineura l hearing loss with condu ctive hearing loss with mixed hearing loss with}} {{excellen t* good fa ir poor no measurable }} word recognitio n. Tympanomet ry: Right Ear:{{Type A* Type As Type Ad Type C Type C, shallow & rounded Ty pe B Type B with large volume Cou ld not maintain a hermetic seal}} Left Ear:{{Type A* Type As Type Ad Type C Type C, shallow & rounded Ty pe B Type B with large volume Cou ld not maintain a hermetic seal}} Health Concerns Section Related Observation LastModified by Organization Detai ls LastModified Time None Recorded Concern Status LastModified by Organization Details LastModified Time None Recorded Advance Directives Directive None Recorded Payers Encounter Date Sequence Insurance Name Policy Number Policy Najera Covered Member ID Najera Member ID Guarantor Name 08/26/[address] [place] [address] [id number] Shannan Timmons [id number] Shannan Timmons Notes Date Note Type Note Provider Name and Address Organization Details Recorded Time 08/26/2024 text/html 59 year old brenden del toro presents after 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 Reports gradual decline in hearing. Feels like she is missing pieces of conversation and announcements over the intercom at work. Having more trouble in background noise or when people are wearing masks. Has buzzing tinnitus in the right ear only, longstanding and well tolerated with masking. No otorrhea. No significant otologic history. Has a history of TMJ that can flare up. 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 RENEE SMITH PA-C [address] [place] [address], [place], [address], [facility] - [facility] 08/26/2024 11:21:44 OBGyn Episode No OBEpisode recorded.
--- OUTSIDE RECORDS SUMMARY | 2025-02-17 10:54 | XMS_ITS | Continuity of Care Document ---
Author Organization [facility] Address [address] [place] [address] Phone [phone] Care Team Providers Care Warehouse Loader Name Role Phone Ruthy Rowley M.D. Care Team Informati on Proof Inspector [phone] Problems Active Problems Provider Date Gastritis Ruthy Rowley M.D. Ons et: 09/26/2022 Tinnitus Ruthy Rowley M.D. Ons et: 09/26/2022 Genital warts Ruthy Rowley M.D. Ons et: 09/26/2022 Dyslipidemia Ruthy Rowley M.D. Ons et: 09/26/2022 Dry eyes Ruthy Rowley M.D. Ons et: 09/26/2022 Migraine Ruthy Rowley M.D. Ons et: 02/01/2024 Irritable bowel syndrome mark racterized by constipation Ruthy Rowley M.D. Onset: 02/01/2024 Uterine leiomyoma uRthy Rowley M.D. O nset: 02/01/2024 Mantoux: positive Ruthy Rowley M.D. 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 10/16/2022 [id number] Tablets Take 2 Tablets By Mouth Twice A Day 360tabs Ruthy Rowley M.D. 07/07/2022 Valacyclovir [id number] Tablets Take 1 Tablet By Mouth Every Day Joey Lackey MD Vitamin W624ygn (400 Unit) Capsules 1 by mouth every day Ruthy Rowley M.D. Calcium 600 + [id number] Tablets 1 by mouth every day Ruthy Rowley M.D. [id number] Chewtabs 1 by mouth every day Ruthy Rowley M.D. Osteo Bi-Flex Advanced Triple StrengthTablets 1 by mouth twice a day Ruthy Rowley M.D. Vitamin C Immune [id number] Chewtabs 1 by mouth every day Ruthy Rowley M.D. Cyclobenzaprine SMV15jo Tablets Take 1 Tablet By Mouth AT Bedtime as Needed For Muscle Spasms Unknown Vital Signs Date Vital Result Comment 02/02/2025 9:15am BP Systolic 110 mmHg BP Diastolic 60 mmHg Heart Rate 98 /min Height 71 inches 5'11 Weight 177.50 lb BMI (Body Mass Index) 24.8 kg/m2 Results Test Acquired Date Facility Test Result H/L Range Note Comp. Metabolic Panel (14) 02/02/2025 [facility] Glucose 85 mg/dL 70-99 BUN 17 mg/dL 8-27 Creatinine 0.89 mg/dL 0.57-1.00 eGFR 74 mL/min/1.73 >59 BUN/Creatinine Ratio 19 12-28 Sodium 142 mmol/L 134-144 Potassium 4.4 mmol/L 3.5-5.2 Chloride 107 mmol/L High 96-106 Carbon Dioxide, Total 20 mmol/L 20-29 Calcium 10.3 mg/dL 8.7-10.3 Protein, Total 6.6 g/dL 6.0-8.5 Albumin 4.6 g/dL 3.8-4.9 Globulin, Total 2.0 g/dL 1.5-4.5 Bilirubin, Total 0.4 mg/dL 0.0-1 .2 Alkaline Phosphatase 76 IU/L 44-121 Ast (Sgot) 29 IU/L 0-40 Alt (SGPT) 24 IU/L 0-32 Hemoglobin A1c 02/02/2025 [facility] Hemoglobin A1c 5.6 % 4.8-5.6 1 CBC With Differential/Plat elet 02/02/2025 [facility] WBC 4.9 x10E3/uL 3.4-10.8 RBC 4.83 x10E6/uL 3.77-5.28 Hemoglobin 14.5 g/dL 11.1-15.9 Hematocrit 43.0 % 34.0-46.6 MCV 89 fL 79-97 MCH 30.0 pg 26.6-33.0 MCHC 33.7 g/dL 31.5-35.7 RDW 12.3 % 11.7-15.4 Platelets 193 x10E3/uL 150-450 Neutrophils TNP 2 Lymphs TNP 3 Monocytes TNP 4 Eos TNP 5 Basos TNP Immature Cells TNP Neutrophils (Absolute) TNP Lymphs (Absolute) TNP 6 Monocytes(Absol u te) TNP Eos (Absolute) TNP 7 Baso (Absolute) TNP 8 Immature Granulocytes TNP Immature Grans (Abs) TNP NRBC TNP Hematology Comments: Note: 9 Urinalysis, Complete 02/02/2025 [facility] Specific Crawford 1.014 1.005-1.030 pH 7.5 5.0-7.5 Urine-Color Yellow Yellow Appearance Clear Clear WBC Esterase Negative Negative Protein Negative Negative/Tr boy Glucose Negative Negative Ketones Negative Negative Occult Blood Negative Negative Bilirubin Negative Negative Urobilinogen,Se m i-Qn 0.2 mg/dL 0.2-1.0 Nitrite, Urine Negative Negative Microscopic Examination See Comment: 10 Microscopic Examination See below: 11 WBC None seen /hpf 0 - 5 RBC None seen /hpf 0 - 2 Epithelial Cell s (non renal) None seen /hpf 0 - 10 Epithelial Cell s (renal) TNP Casts None seen /lpf None seen Cast Type TNP Crystals TNP Crystal Type TNP Mucus Threads TNP Bacteria None seen None seen/Few Yeast TNP Trichomonas TNP Comment TNP Urine Culture, Comprehensive 02/02/2025 [facility] Urine Culture,Comprehe nsive Final report 12 Result 1 See Comment: 13 Comp. Metabolic Panel (14) 02/01/2024 [facility] Glucose [...] [facility] Hemoglobin A1c 5.8 % High 4.8-5.6 14 CBC With Differential/Plat elet 02/01/2024 [facility] WBC 7.2 x10E3/uL 3.4-10.8 RBC [...] 1.4-7.0 Lymphs (Absolute) 1.7 x10E3/uL 0.7-3.1 Monocytes(Absol u te) 0.4 x10E3/uL 0.1-0.9 Eos (Absolute) 0.1 x10E3/uL 0.0-0.4 Baso (Absolute) 0.0 x10E3/uL 0.0-0.2 Immature Granulocytes 0 % Not Estab. Immature Grans (Abs) 0.0 x10E3/uL 0.0-0.1 NRBC TNP Hematology Comments: TNP 1 Prediabetes: 5.7 - 6 .4 Diabetes: >6.4 Glycemic control for adults with diabetes: <7.0 2 Test not performed 3 Test not performed 4 Test not performed 5 Test not performed 6 Test not performed 7 Test not performed 8 Test not performed 9 We are unable to per form a differential due to gross degeneration of all cellular elements. 10 Microscopic follows if indicated. 11 Microscopic was barrera cated and was performed. 12 Preliminary report 13 No growth in 36 - 48 hours. 14 Prediabetes: 5.7 - 6 .4 Diabetes: >6.4 Glycemic control for adults with diabetes: <7.0 Procedures Date Code Description Status 02/02/2025 35706 Collection Of Venous Blood B y Venipuncture Completed 02/01/2024 39008 Collection Of Venous Blood B y Venipuncture Completed 09/26/2022 NSHOWOFF No Show Office Visit Complet ed Medical Devices Description No Information Available Encounters Type Date Location Provider Dx Diagnosis Office Visit 02/02/2025 9:15a Main Office Ruthy Rowley M.D. Z00.00 Encntr for general adult medical exam w/o abnormal findings G43.009 Migraine w/o aura, n ot intractable, w/o status migrainosus R73.03 Prediabetes H91.91 Unspecified hearing loss, right ear H93.11 Tinnitus, right ear R30.0 Dysuria Assessments Date Code Description Provider 02/02/2025 Z00.00 Encounter for ge neral adult medical examination without abnormal findings Ruthy Rowley M.D. 02/02/2025 G43.009 Migraine without aura, not intractable, without status migrainosus Ruthy Rowley M.D. 02/02/2025 R73.03 Prediabetes Ruthy Goff M.D. 02/02/2025 H91.91 Unspecified hearing loss, ri ght ear Ruthy Rowley M.D. 02/02/2025 H93.11 Tinnitus, right ear Ruthy Rowley M.D. 02/02/2025 R30.0 Dysuria Ruthy Goff M.D. Plan of Treatment Future Appointment(s):* 08/07/2025 8:30 am - Ruthy Rowley M.D. at Main Office 02/02/2025 - Ruthy Rowley M.D.* Z00.00 Encounter for general adult medical examination without abnormal findings * G43.009 Migraine without aura, not intractable, without status migrainosus * R73.03 Prediabetes * H91.91 Unspecified hearing loss, right ear * H93.11 Tinnitus, right ear * R30.0 Dysuria Functional Status Description No Information Available Mental Status Description No Information Available Referrals Refer to Reason for Referral Status Appt [facility] Hearing loss Patient Declin ed 08/26/2024 [address] [place] [address] [phone]
== END 2025-02-17 10:58 | disposition home or self-care (01) ==
LOC: HO.PMC 10:10
PROVIDERS: Visit Provider Internal Medicine
DX: S46.911A Strain of unspecified muscle, fascia and tendon at shoulder and upper arm level, right arm, initial encounter (principal); M47.812 Spondylosis without myelopathy or radiculopathy, cervical region; M54.12 Radiculopathy, cervical region; M54.6 Pain in thoracic spine
CPT/HCPCS: 20553; 99214

== ENCOUNTER → 2025-02-17 10:09 | Outpatient (BNVA) | payer OTHER, SELFPAY | PROVIDERS: Visit Provider Internal Medicine | DX: S46.911A Strain of unspecified muscle, fascia and tendon at shoulder and upper arm level, right arm, initial encounter (principal); M47.812 Spondylosis without myelopathy or radiculopathy, cervical region; M54.12 Radiculopathy, cervical region; M54.6 Pain in thoracic spine | CPT/HCPCS: 20553; 99212 ==

== ENCOUNTER → 2025-03-21 14:03 | Outpatient (BNVA) | payer OTHER, SELFPAY | PROVIDERS: Visit Provider Registered Nurse | DX: S46.911D Strain of unspecified muscle, fascia and tendon at shoulder and upper arm level, right arm, subsequent encounter (principal); X50.1XXD Overexertion from prolonged static or awkward postures, subsequent encounter; M54.2 Cervicalgia; M54.6 Pain in thoracic spine | CPT/HCPCS: 99213 ==

== ENCOUNTER 2025-04-24 11:45 | Outpatient (AMB) | payer OTHER, SELFPAY ==
[2025-04-24 11:47] VITALS: BP 117/86; PULSE 94; RESP 16; O2SAT 97; BMI 24.3
--- NOTE | 2025-04-24 11:47 | A.OFFVIS_ITS ---
Vital Signs 04/24/25 11:47 Height 5 ft 11 in Weight 174 lb BMI 24.3 BP 117/86 Blood Pressure Location Lt brachial Position Sitting Respiration 16 Pulse 94 Pulse Source Pulse Oximeter Pulse Oximetry (%) 97 Oxygen Delivery Method Room Air Intake Visit Reasons: Trigger point inj Legal Services Manager Required: No Accompanied by: Self / Same As Patient Allergies Sulfa (Sulfonamide Antibiotics) Allergy (Intermediate, Verified 04/24/25 11:52) Hives HPI HPI Trigger point inj: Details: History of Present Illness The patient is a 59-year-old female presenting with evaluation and management of spine and shoulder pain related to a work injury. Following an incident that involved pulling the shoulder, the patient experienced pain that affected her neck and thoracic spine. She has since been on reduced duty at work and reports persistent pain and functional limitations, preventing her from performing her role with full capacity. Past interventions included trigger point injections which afforded initial relief, although the pain became progressively evident two weeks later. 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 The thoracic spine and shoulder pain have restricted her baseline functionality since April 2022. Pain Description - Onset: Post work-related injury - Quality: Persistent, radiating to thoracic area - Location: Cervical and thoracic spine, right shoulder - Exacerbating factors: Physical activities involving lifting and transferring - Relieving factors: Trigger point injections (initial relief) - Functional Interference: Limits lifting and mobility, impacts capacity to work Physical Exam - Musculoskeletal- Trigger points identified in right neck, shoulder, thoracic region, rhomboid, occipital, cervical, trapezius muscles Results Pain Management - Affect: Persistent pain impacting daily function; frustration due to procedural approval issues - Analgesia: Trigger point injections provided temporary relief - Adverse Effects: No side effects from trigger point injections noted - Activities of Daily Living: Impacts ability to carry out work duties involving physical assistance - Aberrant Drug Related Behaviors: None reported Procedure - Trigger Point Injections: Informed consent obtained, injected identified trigger points with 0.5 to 1 mL of ropivacaine 0.25% with no complications or blood loss reported. - Muscles injected: right rhomboid, trapezius, levator scapula Physical Exam Vital Signs: Last Vital Signs Pulse 94 04/24/25 11:47 Resp 16 04/24/25 11:47 BP 117/86 04/24/25 11:47 Pulse Ox 97 04/24/25 11:47 Oxygen Delivery Method Room Air 04/24/25 11:47 BMI result Body Mass Index 24.3 Assessment & Plan Assessment & Plan (1) Strain of right shoulder: Code(s): S46.911A - Strain of unspecified muscle, fascia and tendon at shoulder and upper arm level, right arm, initial encounter Category: Medical (2) Myofascial pain: Code(s): M79.18 - Myalgia, other site Category: Medical Plan Plan - Seek clarity from for functional capacity evaluation approval. - Continue current light-duty work status; monitor response to activities. - Restart physical therapy to improve patient's functional status. - Clarify insurance requirements with income tax adjuster to aid evaluation approval. Patient was informed and verbally consented to the use of an ambient scribe for clinic note documentation during this visit. Discussion Notes I spoke with the patient regarding the stress of managing multiple contacts for functional assessment approval. We discussed that the patient is on light duty and that functional limitations persist, impacting her work. The importance of obtaining clear documentation from the insurance's utilization review was emphasized to assist in gaining approval for a functional capacity evaluation assessment. Consent for today's trigger point injection therapy was obtained after a thorough discussion of anticipated outcomes, and she agreed to contact the insurer again with my provided information for further clarity. Patient Instructions - Follow light-duty work restrictions. - Await further instructions on physical therapy scheduling. - Contact your income tax adjuster or utilization review for approval updates and clarification. - Report any significant changes in pain or functionality. Orders: Orders PT Evaluation and Treatment 04/24/25 M54.6 - Pain in thoracic spine, M54.12 - Radiculopathy, cervical region, S46.911A - Strain of unspecified muscle, fascia and tendon at shoulder and upper arm level, right arm, initial encounter Coding Level of Care Code Est Pt Level 4 (52550) Diagnoses Strain of right shoulder S46.911A Myofascial pain M79.18
--- OUTSIDE RECORDS SUMMARY | 2025-04-24 13:20 | XMS_ITS | Continuity of Care Document ---
Author Organization [facility] Address [address] [place] [address] Phone [phone] Care Team Providers Care Slip Caster Name Role Phone Ruthy Rowley M.D. Care Team Informati on Pulp Drier [phone] Problems Active Problems Provider Date Gastritis Ruthy [...] Social History Type Date Description Comments Sex Female Sex Unknown Lives With Alone Occupation home [...] Medications SIG Qnty Indications Ordering Provider Date Zwyhjuwbqytb6ax Tablets Take 1 Tab By Mouth as Needed For Headache.May Take Extra Tab 2 hours Later If Needed.Max 2 Tabs/24HRS 6tabs Ruthy Rowley M.D. 10/16/2022 Snsfxzgnqy25ci Tablets Take 2 Tablets By Mouth Twice A Day 360tabs Ruthy Rowley M.D. 07/07/2022 Valacyclovir [id number] Tablets Take 1 Tablet By Mouth Every Day Joey Lackey MD Vitamin A012jzd (400 Unit) Capsules 1 by mouth every day Ruthy Rowley M.D. Calcium 600 + [id number] Tablets 1 by mouth every day Ruthy Rowley M.D. [id number] Chewtabs 1 by mouth every day Ruthy Rowley M.D. Osteo Bi-Flex Advanced Triple StrengthTablets 1 by mouth twice a day Ruthy Rowley M.D. Vitamin C Immune Oihrwt135tl Chewtabs 1 by mouth every day Ruthy Rowley M.D. Cyclobenzaprine ZAM48lk Tablets Take 1 Tablet By Mouth AT [...] Note: 9 Urinalysis, Complete 02/02/2025 [facility] Specific [place] 1.014 1.005-1.030 pH 7.5 5.0-7.5 Urine-Color Yellow [...] <7.0 Procedures Date Code Description Status 02/02/2025 81984 Collection Of Venous Blood B y Venipuncture Completed 02/01/2024 41724 Collection Of Venous Blood B y Venipuncture [...] Status Appt [facility] Hearing loss Patient Declin ed 08/26/2024 [address] [place] [address] [phone]
== END 2025-04-24 12:25 | disposition home or self-care (01) ==
LOC: HO.PMC 11:46
PROVIDERS: Visit Provider Internal Medicine
DX: S46.911A Strain of unspecified muscle, fascia and tendon at shoulder and upper arm level, right arm, initial encounter (principal); M79.18 Myalgia, other site
CPT/HCPCS: 20553; 99214

== ENCOUNTER → 2025-04-24 11:45 | Outpatient (BNVA) | payer OTHER, SELFPAY | PROVIDERS: Visit Provider Internal Medicine | DX: S46.911A Strain of unspecified muscle, fascia and tendon at shoulder and upper arm level, right arm, initial encounter (principal); M79.18 Myalgia, other site | CPT/HCPCS: 20553; 99212 ==

== ENCOUNTER → 2025-04-25 13:56 | Outpatient (BNVA) | payer OTHER, SELFPAY | PROVIDERS: Visit Provider Registered Nurse | DX: S46.911D Strain of unspecified muscle, fascia and tendon at shoulder and upper arm level, right arm, subsequent encounter (principal); X50.1XXD Overexertion from prolonged static or awkward postures, subsequent encounter; M54.2 Cervicalgia; M54.6 Pain in thoracic spine | CPT/HCPCS: 99213 ==

== ENCOUNTER → 2025-06-06 14:14 | Outpatient (BNVA) | payer OTHER, SELFPAY | PROVIDERS: Visit Provider Registered Nurse | DX: S46.811D Strain of other muscles, fascia and tendons at shoulder and upper arm level, right arm, subsequent encounter (principal); X50.1XXD Overexertion from prolonged static or awkward postures, subsequent encounter; M54.2 Cervicalgia; M54.6 Pain in thoracic spine | CPT/HCPCS: 99213 ==

== ENCOUNTER → 2025-07-04 14:10 | Outpatient (BNVA) | payer OTHER, SELFPAY | PROVIDERS: Visit Provider Registered Nurse | DX: S46.911D Strain of unspecified muscle, fascia and tendon at shoulder and upper arm level, right arm, subsequent encounter (principal); M54.2 Cervicalgia; M54.6 Pain in thoracic spine; X50.1XXD Overexertion from prolonged static or awkward postures, subsequent encounter | CPT/HCPCS: 99213 ==

== ENCOUNTER 2025-07-24 13:39 | Outpatient (AMB) | payer OTHER, SELFPAY ==
--- NOTE | 2025-07-24 13:42 | A.OFFVIS_ITS ---
Vital Signs 07/24/25 13:43 Height 5 ft 11 in Weight 178 lb BMI 24.8 BP 116/70 Blood Pressure Location Lt brachial Position Sitting Respiration 16 Pulse 82 Pulse Source Pulse Oximeter Pulse Oximetry (%) 98 Oxygen Delivery Method Room Air Intake Visit Reasons: Trigger Point Inj Environmental Science Instructor Required: No Construction Electrician: Construction Electrician Present Accompanied by: Akash Dillon Allergies Sulfa (Sulfonamide Antibiotics) Allergy (Intermediate, Verified 07/24/25 13:45) Hives Medication List - Last Reconciled 07/24/25 by Meghann Cardenas LPN biotin 2,500 mcg PO DAILY calcium carbonate 500 mg PO DAILY cholecalciferol (vitamin D3) 25 mcg PO DAILY cyclobenzaprine 10 mg PO BEDTIME PRN glucosamine-chondroitin 250-200 mg (Osteo Bi-Flex) 2 tabs PO ONCE lidocaine 5% 1 patch topical DAILY mecobalamin (vitamin B12) mcg PO topiramate (Topamax) 25 mg PO BID HPI HPI Trigger Point Inj: Details: History of Present Illness The patient is a 60-year-old female presenting with a follow-up visit after a functional capacity evaluation. She has been experiencing cervical pain, which is managed with trigger point injections and physical therapy. The patient reports that her right shoulder blade protrudes, which was noted in the evaluation report. The patient continues to work on light duty, as recommended by the functional capacity evaluation. She expresses concerns about the duration of light duty and its impact on her work responsibilities. The patient has been using a TENS unit and patches for pain relief, and she is considering the frequency of trigger point injections. Pain Description - Onset: Chronic cervical pain - Quality: Burning sensation in the shoulders - Location: Cervical region and right shoulder blade - Exacerbating factors: Work activities, even on light duty - Relieving factors: TENS unit, patches, and trigger point injections Physical Exam - Musculoskeletal: Trigger point injections administered to the right cervical, occipitalis, cervicalis, trapezius, and rhomboid muscles Results - Functional Capacity Evaluation: Recommended light duty due to cervical pain and right shoulder blade protrusion Pain Management - Affect: Pain impacts daily activities and work responsibilities - Analgesia: Utilizes TENS unit, patches, and trigger point injections for pain relief - Adverse Effects: None reported - Activities of Daily Living: Pain affects ability to perform work duties even on light duty - Aberrant Drug Related Behaviors: None reported Procedure - Trigger Point Injections: Informed consent obtained, injected identified trigger points with 0.5 to 1 mL of ropivacaine 0.25% with no complications or blood loss reported. - Muscles injected: right rhomboid, trapezius, levator scapula Physical Exam Vital Signs: Last Vital Signs Pulse 82 07/24/25 13:43 Resp 16 07/24/25 13:43 BP 116/70 07/24/25 13:43 Pulse Ox 98 07/24/25 13:43 Oxygen Delivery Method Room Air 07/24/25 13:43 BMI result Body Mass Index 24.8 Assessment & Plan Assessment & Plan (1) Cervicalgia: Code(s): M54.2 - Cervicalgia Category: Medical (2) Thoracic back pain: Code(s): M54.6 - Pain in thoracic spine Category: Medical (3) Strain of right shoulder: Code(s): S46.911A - Strain of unspecified muscle, fascia and tendon at shoulder and upper arm level, right arm, initial encounter Category: Medical (4) Myofascial pain: Code(s): M79.18 - Myalgia, other site Category: Medical Plan Plan Patient was informed and verbally consented to the use of an ambient scribe for clinic note documentation during this visit. 1. Cervical Pain - Continue with light duty as recommended by the functional capacity evaluation. - Utilize TENS unit and patches for pain management. - Consider frequency of trigger point injections based on pain levels and patient preference. 2. Right Shoulder Blade Protrusion - Monitor for any changes or worsening of symptoms. - Discuss with occupational health for potential ergonomic adjustments at work. Discussion Notes I discussed with the patient the results of the functional capacity evaluation, which recommended light duty due to cervical pain and right shoulder blade protrusion. We reviewed pain management options, including the use of TENS unit, patches, and trigger point injections. I advised the patient to communicate with her workplace regarding any necessary ergonomic adjustments and to monitor her symptoms for any changes. Patient Instructions - Continue using TENS unit and patches for pain relief. - Follow up with occupational health for any necessary work adjustments. - Monitor symptoms and report any changes or worsening to the clinic. - Schedule follow-up appointments as needed for trigger point injections. Coding Level of Care Code Est Pt Level 4 (36642) Diagnoses Cervicalgia M54.2 Thoracic back pain M54.6 Strain of right shoulder S46.911A Myofascial pain M79.18
[2025-07-24 13:43] VITALS: BP 116/70; PULSE 82; RESP 16; O2SAT 98; BMI 24.8
--- OUTSIDE RECORDS SUMMARY | 2025-07-24 18:54 | XMS_ITS | Continuity of Care Document ---
Author Organization [facility] Address [address] [place] [address] Phone [phone] Care Team Providers Care Shipping Inspector Name Role Phone Ruthy Rowley M.D. Care Team Informati on Parquetry Floor Layer [phone] Problems Active Problems Provider Date Gastritis Ruthy [...] Medications SIG Qnty Indications Ordering Provider Date Cmxamsbyazcc5km Tablets Take 1 Tab By Mouth as Needed For Headache.May Take Extra Tab 2 hours Later If Needed.Max 2 Tabs/24HRS 6tabs Ruthy Rowley M.D. 10/16/2022 Delbajbjcv15tn Tablets Take 2 Tablets By Mouth Twice A Day 360tabs Ruthy Rowley M.D. 07/07/2022 Valacyclovir WMC629mv Tablets Take 1 Tablet By Mouth Every Day Joey Lackey MD Vitamin N371dpq (400 Unit) Capsules 1 by mouth every day Ruthy Rowley M.D. Calcium 600 + T824-7ij-mjh Tablets 1 by mouth every day Ruthy Rowley M.D. [id number] Chewtabs 1 by mouth every day Ruthy Rowley M.D. Osteo Bi-Flex Advanced Triple StrengthTablets 1 by mouth twice a day Ruthy Rowley M.D. Vitamin C Immune Dekvkg272gu Chewtabs 1 by mouth every day Ruthy Rowley M.D. Cyclobenzaprine PHZ51wx Tablets Take 1 Tablet By Mouth AT [...] Note: 9 Urinalysis, Complete 02/02/2025 [facility] Specific [place] 1.014 1.005-1.030 pH 7.5 5.0-7.5 Urine-Color Yellow [...] <7.0 Procedures Date Code Description Status 02/02/2025 00359 Collection Of Venous Blood B y Venipuncture Completed 02/01/2024 62182 Collection Of Venous Blood B y Venipuncture [...] Goff M.D. Plan of Treatment Future Appointment(s):* 11/22/2025 8:30 am - Ruthy Rowley M.D. at [...] Status Appt [facility] Hearing loss Patient Declin ed 08/26/2024 [address] [place] [address] [phone]
== END 2025-07-24 14:32 | disposition home or self-care (01) ==
LOC: HO.PMC 13:40
PROVIDERS: Visit Provider Internal Medicine
DX: M54.2 Cervicalgia (principal); M54.6 Pain in thoracic spine; S46.911A Strain of unspecified muscle, fascia and tendon at shoulder and upper arm level, right arm, initial encounter; M79.18 Myalgia, other site
CPT/HCPCS: 20553; 99214

== ENCOUNTER → 2025-07-24 13:39 | Outpatient (BNVA) | payer OTHER, SELFPAY | PROVIDERS: Visit Provider Internal Medicine | DX: M54.2 Cervicalgia (principal); M54.6 Pain in thoracic spine; S46.911A Strain of unspecified muscle, fascia and tendon at shoulder and upper arm level, right arm, initial encounter; M79.18 Myalgia, other site; G89.29 Other chronic pain | CPT/HCPCS: 20553; 99212; J2795 ==

== ENCOUNTER → 2025-09-12 15:40 | Outpatient (BNVA) | payer OTHER, SELFPAY | PROVIDERS: Visit Provider Registered Nurse | DX: S46.811D Strain of other muscles, fascia and tendons at shoulder and upper arm level, right arm, subsequent encounter (principal); X50.1XXD Overexertion from prolonged static or awkward postures, subsequent encounter; M54.2 Cervicalgia; M54.6 Pain in thoracic spine | CPT/HCPCS: 99213 ==

== ENCOUNTER 2025-10-02 11:15 | Outpatient (AMB) | payer OTHER, SELFPAY ==
--- NOTE | 2025-10-02 11:23 | MHC.OFFVIS ---
Vital Signs 10/02/25 11:25 Height 5 ft 11 in Weight 178 lb BMI 24.8 BP 124/76 Blood Pressure Location Lt brachial Position Sitting Respiration 16 Pulse 75 Pulse Source Pulse Oximeter Pulse Oximetry (%) 100 Oxygen Delivery Method Room Air Intake Visit Reasons: TRIGGER POINT INJECTION Print Designer Required: No Senior Category Manager: Senior Category Manager Present Accompanied by: Akash Dillon Allergies Sulfa (Sulfonamide Antibiotics) Allergy (Intermediate, Verified 10/02/25 11:26) Hives Medication List - Last Reconciled 10/02/25 by Meghann Cardenas LPN biotin 2,500 mcg PO DAILY calcium carbonate 500 mg PO DAILY cholecalciferol (vitamin D3) 25 mcg PO DAILY cyclobenzaprine 10 mg PO BEDTIME PRN glucosamine-chondroitin 250-200 mg (Osteo Bi-Flex) 2 tabs PO ONCE lidocaine 5% 1 patch topical DAILY mecobalamin (vitamin B12) mcg PO topiramate (Topamax) 25 mg PO BID HPI HPI TRIGGER POINT INJECTION: Details: History of Present Illness The patient is a 60-year-old individual presenting with myofascial pain syndrome. The pain has been intermittent, with flare-ups occurring in the shoulder blade area, described as aching, burning, and throbbing. The patient has been using lidocaine patches and a TENS machine for relief, but the pain persists. The patient has a history of cervical radicular pain, which has not been relieved by previous physical therapy sessions. An MRI of the cervical spine was previously denied, but it will be ordered for further evaluation. Pain Description - Onset: Intermittent flare-ups - Quality: Aching, burning, throbbing - Location: Shoulder blade area - Radiation: None specified - Exacerbating factors: Persistent despite lidocaine patches and TENS machine - Relieving factors: Temporary relief with lidocaine patches and TENS machine Physical Exam - Musculoskeletal: Trigger point tenderness in the right trapezius and rhomboid areas Results Pain Management - Affect: Pain impacts daily activities and mood - Analgesia: Using lidocaine patches and TENS machine, pain persists - Adverse Effects: None reported - Activities of Daily Living: Pain interferes with daily activities - Aberrant Drug Related Behaviors: None reported Procedure - Trigger point injections: Informed consent obtained, patient in sitting position, injections administered to right rhomboid major and minor, and serratus muscles with 0.5 mL to 1 mL of ropivacaine 0.25%. No blood loss. Stable at discahrge. Physical Exam Vital Signs: Last Vital Signs Pulse 75 10/02/25 11:25 Resp 16 10/02/25 11:25 BP 124/76 10/02/25 11:25 Pulse Ox 100 10/02/25 11:25 Oxygen Delivery Method Room Air 10/02/25 11:25 BMI result Body Mass Index 24.8 Assessment & Plan Assessment & Plan (1) Cervical radiculopathy: Code(s): M54.12 - Radiculopathy, cervical region Category: Medical (2) Cervical spondylosis: Code(s): M47.812 - Spondylosis without myelopathy or radiculopathy, cervical region Category: Medical (3) Myofascial pain: Code(s): M79.18 - Myalgia, other site Category: Medical Plan Plan Patient was informed and verbally consented to the use of an ambient scribe for clinic note documentation during this visit. 1. Myofascial Pain Syndrome - Continue with neck exercises and use of lidocaine patches and TENS machine for pain management. - Trigger point injections administered during the visit for symptomatic relief. 2. Cervical Radicular Pain - Order MRI of cervical spine for further evaluation due to persistent symptoms despite physical therapy. Discussion Notes During the visit, we discussed the management of myofascial pain syndrome and cervical radicular pain. I explained the procedure of trigger point injections and obtained informed consent. We also discussed the need for an MRI of the cervical spine to further evaluate the persistent symptoms. The patient was advised to continue with neck exercises and the use of lidocaine patches and TENS machine for pain management. Patient Instructions - Continue using lidocaine patches and TENS machine as needed for pain relief. - Perform neck exercises regularly to help manage symptoms. - Follow up for MRI of the cervical spine as scheduled. Orders: Orders MR cervical spine wo con 10/02/25 M47.812 - Spondylosis without myelopathy or radiculopathy, cervical region, M54.12 - Radiculopathy, cervical region Coding Level of Care Code Est Pt Level 4 (69206) Diagnoses Cervical radiculopathy M54.12 Cervical spondylosis M47.812 Myofascial pain M79.18
[2025-10-02 11:25] VITALS: BP 124/76; PULSE 75; RESP 16; O2SAT 100; BMI 24.8
--- OUTSIDE RECORDS SUMMARY | 2025-10-02 14:38 | XMS_ITS | Continuity of Care Document ---
Author Organization [facility] Address [address] [place] [address] Phone [phone] Care Team Providers Care Linen Supply Load Builder Name Role Phone Ruthy Rowley M.D. Care Team Informati on Mold Shifter [phone] Problems Active Problems Provider Date Gastritis Ruthy [...] Medications SIG Qnty Indications Ordering Provider Date Hcpwwuixyhsh0ls Tablets Take 1 Tab By Mouth as Needed For Headache.May Take Extra Tab 2 hours Later If Needed.Max 2 Tabs/24HRS 6tabs Ruthy Rowley M.D. 10/16/2022 Ozsmrydvee64bg Tablets Take 2 Tablets By Mouth Twice A Day 360tabs Ruthy Rowley M.D. 07/07/2022 Valacyclovir CME153kb Tablets Take 1 Tablet By Mouth Every Day Joey Lackey MD Vitamin N409qwb (400 Unit) Capsules 1 by mouth every day Ruthy Rowley M.D. Calcium 600 + V125-2zv-mnq Tablets 1 by mouth every day Ruthy Rowley M.D. [id number] Chewtabs 1 by mouth every day Ruthy Rowley M.D. Osteo Bi-Flex Advanced Triple StrengthTablets 1 by mouth twice a day Ruthy Rowley M.D. Vitamin C Immune Agojrj455ew Chewtabs 1 by mouth every day Ruthy Rowley M.D. Cyclobenzaprine PXQ84ss Tablets Take 1 Tablet By Mouth AT [...] Note: 9 Urinalysis, Complete 02/02/2025 [facility] Specific [place] 1.014 1.005-1.030 pH 7.5 5.0-7.5 Urine-Color Yellow [...] <7.0 Procedures Date Code Description Status 02/02/2025 72472 Collection Of Venous Blood B y Venipuncture Completed 02/01/2024 79280 Collection Of Venous Blood B y Venipuncture [...] Status Appt [facility] Hearing loss Patient Declin ed 08/26/2024 [address] [place] [address] [phone]
== END 2025-10-02 11:55 | disposition home or self-care (01) ==
LOC: HO.PMC 11:16
PROVIDERS: Visit Provider Internal Medicine
DX: M54.12 Radiculopathy, cervical region (principal); M47.812 Spondylosis without myelopathy or radiculopathy, cervical region; M79.18 Myalgia, other site
CPT/HCPCS: 99214

== ENCOUNTER → 2025-10-02 11:15 | Outpatient (BNVA) | payer OTHER, SELFPAY | PROVIDERS: Visit Provider Internal Medicine | DX: M54.12 Radiculopathy, cervical region (principal); M47.812 Spondylosis without myelopathy or radiculopathy, cervical region; M79.18 Myalgia, other site | CPT/HCPCS: 99212 ==